=== PATIENT | male | born 1965 | race Caucasian/White ===

== ENCOUNTER 2024-11-11 11:07 | Outpatient (AMB) | payer OTHER, SELFPAY ==
--- NOTE | 2024-11-11 11:12 | A.OFFVIS_ITS ---
Intake Visit Reasons: 4M Epilepsy Allergies No Known Allergies Allergy (Verified 11/03/24 13:04) Medication List - Last Reconciled 11/11/24 by Kenny Lofton MD atorvastatin 80 mg PO DAILY oxcarbazepine 150 mg PO TID HPI Comments Details: 59 yo man with h/o seizure disorder all my life , basilar tip aneurysm clipping in 2017, and later MRI revealing right occipital encephalomalacia and couple of deep parietal embolic looking ischemic infarcts. He started having seizures in teen years. Warning included pain in his butt, ringing in ears, deafenss, and then passing out. He passed out and convulsed during the episodes. No tongue bite or incontinence. With medicine, seizures were controlled. He is presenting with worsening musculoskeletal pain specifically affecting the left side of the neck and shoulder region. The pain started following a morning of turning in bed and has persisted for about three months. Muscle relaxants prescribed previously were ineffective. There is a palpable lump in the same area without significant pain but notable as it's described to push into the bone. Additionally, the patient experienced episodic vertigo, diagnosed as positional vertigo related to heat, subsequently resolved with air conditioning. No headaches, seizures, stroke, or alcohol use reported, with family history notable for alcoholism. [facility] Medical History (Updated 11/11/24 @ 11:28 by Kenny Lofton MD) Cerebral infarction Cerebral aneurysm Epilepsy Review of Systems Const Details: - Musculoskeletal: Reports persistent left-sided neck and shoulder muscle spasm. - Neurologic: Denies headaches, seizures. Reports positional vertigo, resolved. - Respiratory: Denies breathing difficulties despite concerns of sinus congestion. - Cardiovascular: Denies recurrence of suspected stroke symptoms. - Social: Denies alcohol use. Physical Exam Neuro Other: Mental Status: Alert and oriented to person, place, and time. Normal attention. Normal spontaneous speech, fluency, and comprehension. No obvious issues with mood and memory. Affect is appropriate. Cranial Nerves: CN II: Visual horowitz full to confrontation, visual acuity intact. CN III, IV, : Pupils equal, round, reactive to light and accommodation. Extraocular movements are normal. CN V: Facial sensation is normal. CN VII: Facial movements symmetrical. CN VIII: Hearing intact to bedside conversation is normal. CN IX, X: Palate elevates symmetrically. CN XI: Shoulder shrug and head turn symmetrical. CN XII: Tongue midline without atrophy or fasciculations. Extrapyramidal: Full facial expressions and blinking. No rigidity. Movements are appropriate with no tremor or abnormality. Speech: Normal; no dysarthria or tremor. Assessment & Plan Assessment & Plan (1) Cerebral aneurysm: Code(s): I67.1 - Cerebral aneurysm, nonruptured Category: Medical (2) Encephalomalacia: Code(s): G93.89 - Other specified disorders of brain Category: Medical (3) Epilepsy: Comment: MRI brain WO at [facility] in 2020: Aneurysm coil in basilar artery, Right occipital encephalomalacia, Chronic left parietal bilateral parietal embolic looking infarcts CTA brain and neck at [facility] in 2020: s/p basilar tip aneurysm coiling Code(s): G40.909 - Epilepsy, unspecified, not intractable, without status epilepticus Category: Medical Qualifiers: Epilepsy type: other generalized Intractability: not intractable Status epilepticus: without status epilepticus Qualified Code(s): G40.409 - Other generalized epilepsy and epileptic syndromes, not intractable, without status epilepticus (4) Cervical paraspinal muscle spasm: Code(s): M62.838 - Other muscle spasm Category: Medical Plan Impression: a: 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 b: 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 c: Right occipital encephalomalacia that was probably due to the events in 2017 d: Bilateral parietal infarcts, which might also have happened in 2017 e: Left cervical muscle spasm causing neck pain Rec: a: Oxcarbazepine 150mg tid b: Baclofen 20 one at night as needed Medications: New oxcarbazepine 150 mg PO TID 270 tabs 1RF baclofen 20 mg PO BEDTIME 30 tabs 0RF Coding Level of Care Code Est Pt Level 4 (63926) Diagnoses Cerebral aneurysm I67.1 Encephalomalacia G93.89 Other generalized epilepsy, not intractable, without status epilepticus G40.409 Epilepsy type: other generalized Intractability: not intractable Status epilepticus: without status epilepticus Cervical paraspinal muscle spasm M62.838
== END 2024-11-11 11:29 | disposition home or self-care (01) ==
LOC: HO.HSM 11:08
PROVIDERS: PCP Internal Medicine; Referring Provider Internal Medicine; Visit Provider Psychiatry & Neurology Neurology
DX: I67.1 Cerebral aneurysm, nonruptured (principal); G93.89 Other specified disorders of brain; G40.409 Other generalized epilepsy and epileptic syndromes, not intractable, without status epilepticus; M62.838 Other muscle spasm
CPT/HCPCS: 99214